=== PATIENT | female | born 1955 | race Two or more races ===

== ENCOUNTER 2017-03-20 22:30 | Emergency (ER) | payer BC ==
[~2017-03-20] VITALS: Ht 167.6 cm; Wt 65.3 kg
--- NOTE | 2017-03-20 22:35 | NUR ---
To bed 6 a 62 yo female bibra with c/o right shoulder pain radiating to right arm due to "pinched nerve" which became worse since last night. Per ems, patient was given morphine 4mg ivp and zofran 4mg ivp, with "little relief" per patient. Patient is aaox4, no s/s of acute distress. Breathing even and unlabored. VSS. Nondiaphoretic. Initiated comfort measures. Gowned. Awaiting for er md fernando.
--- NOTE | 2017-03-20 22:50 | NUR ---
Dr Fox at bedside for eval.
[2017-03-20] MEDS ORDERED: BUPIVACAINE 0.5 % PF 150 MG/30 ML VIAL ONE (23:02)
[2017-03-20] MEDS ORDERED: BUPIVACAINE 0.5 % PF 150 MG/30 ML VIAL IJ ONE (23:30)
--- NOTE | 2017-03-20 23:30 | NUR ---
Dr Fox completed nerve block procedure to patient's right upper back/shoulder area. will continue to monitor.
--- NOTE | 2017-03-21 00:28 | NUR ---
IV removed. Catheter intact and site benign. Pressure and 4x4 applied to site. No bleeding noted. Patient discharged to home in stable condition. Written and verbal after care instructions given. Patient verbalizes understanding of instruction. Patient is ambulatory with steady gait, accompanied by family.
[2017-03-21 00:30] VITALS: BP 120/65
== END 2017-03-21 00:32 | disposition home or self-care (01) ==
LOC: ER 22:32
DX: M62.830 Muscle spasm of back (principal)
CPT/HCPCS: A4606; J3490; Z7610